=== PATIENT | female | born 1965 | race Caucasian/White ===

== ENCOUNTER 2017-03-18 08:59 | Emergency (ER) | payer BC, OTHER ==
[~2017-03-18 08:59] MED LIST: CPAP; GLUCOPHAGE 500500 MG PO; JANUVIA100 MG PO; LIPITOR TAB 2020 MG PO; LO-DOSE ASPIRIN81 MG PO; LOSARTAN POTASS25 MG PO; NITROSTAT0.4 MG SL; OMEPRAZOLE40 MG PO; PROZAC40 MG PO; TOPROL XL25 MG PO
== END 2017-03-18 12:40 | disposition home or self-care (01) ==
LOC: ER1 08:59
DX: S09.90XA Unspecified injury of head, initial encounter (principal); S16.1XXA Strain of muscle, fascia and tendon at neck level, initial encounter; I10 Essential (primary) hypertension; I25.2 Old myocardial infarction; E11.9 Type 2 diabetes mellitus without complications; W01.0XXA Fall on same level from slipping, tripping and stumbling without subsequent striking against object, initial encounter; Y92.002 Bathroom of unspecified non-institutional (private) residence as the place of occurrence of the external cause
CPT/HCPCS: 70450; 72125; 99283; Q0162

== ENCOUNTER → 2017-03-24 | Outpatient (CLI) | payer BC, OTHER | LOC: KOH-I 10:57 | DX: E03.9 Hypothyroidism, unspecified (principal); R53.83 Other fatigue; E04.9 Nontoxic goiter, unspecified | CPT/HCPCS: 76536 ==

== ENCOUNTER → 2021-02-21 | Outpatient (CLI) | payer BC, OTHER ==
[~2021-02-21] MED LIST changes: +BIOTIN 800 MCG1 EACH PO; +CALCIUM600 MG PO; +CRANBERRY425 MG PO; +ESTROVEN MOOD400 MCG PO; +NOVOLOG MI100 UNIT/1 SC; +PLAVIX 75 MG TA75 MG PO; +ZOFRAN ODT4 MG PO
== END ==
LOC: US 13:21
DX: N94.89 Other specified conditions associated with female genital organs and menstrual cycle (principal)
CPT/HCPCS: 76830